=== PATIENT | female | born 1955 | race Caucasian/White ===

== ENCOUNTER → 2020-10-17 | Day surgery (SDC) | payer MEDICARE ==
[2020-10-15 11:10] LABS: BASOPHILS # (AUTO) 0.1 (0.0-0.1); BASOPHILS % 0.7 % (0.0-1.0); EOSINOPHILS # (AUTO) 0.3 (0.0-0.4); EOSINOPHILS % 3.4 % (0.0-6.0); HEMATOCRIT 42.1 % (34.2-44.1); HEMOGLOBIN 13.4 g/dL (12.0-16.0); LYMPHOCYTES # (AUTO) 3.7 (1.0-3.2); LYMPHOCYTES % 44.3 % (18.0-39.1); MEAN CORPUSCULAR HGB CONC 31.8 g/dL (31-35); MEAN CORPUSCULAR VOLUME 94.4 fL (81-99); MONOCYTES # (AUTO) 0.6 (0.2-0.8); MONOCYTES % 7.3 % (4.4-11.3); NEUTROPHILS # (AUTO) 3.7 (2.1-6.9); NEUTROPHILS % 44.1 % (38.7-80.0); PLATELET COUNT 313 x10e3/uL (140-360); RED BLOOD COUNT 4.46 x10e6/uL (3.6-5.1); RED CELL DISTRIBUTION WIDTH 13.6 % (11.7-14.4)
[~2020-10-17] MED LIST: ALLEGRA ALLERGY60 MG PO; ATORVASTATIN CA20 MG PO; ATROPINE SULFATE 1 MG/ML VIAL ONE; BUPIVACAINE 0.25% 30ML SDV ONE; CINNAMON PO; CINNAMON500 MG PO; COQ-10100 MG PO; DEXAMETHASONE SOD PHOS INJ 4 MG/ML VIAL ONE; FIBERMUCIL PO; FLONASE ALLERG9.9 ML INH; HAIR, SKIN AND1 EAC1 PO; IMMUNE FACTOR PO; KETOROLAC TROMETHAMINE 30 MG/ML VIAL ONE; LEXAPRO10 MG PO; LIDOCAINE 1% W/EPINEPHRINE 20 ML VIAL ONE; LIDOCAINE HCL 2% LOCAL INJ 5 ML SDV VIAL INJ ONE; LOSARTAN POTAS100 MG PO; OMEPRAZOLE40 MG PO; ONDANSETRON HCL INJ 2MG/ML 2ML 2 MG/ML VIAL ONE; POVIDONE IODINE 0.05% 0.05 % ML PO ONE; PROBIOTIC250 MG PO; PROPOFOL IV EMULSION 10 MG/ML 20 ML VIAL ONE; RESVERATROL100 MG PO; SEVOFLURANE INHAL SOLN 250 ML PEN BTL ONE; SODIUM CHLORIDE 0.9% 50ML 50 ML ONE; STRESS B-COMPL1 EACH PO; TIZANIDINE HCL2 M1 PO; VALACYCLOVIR500 MG PO; VITAMIN B-1100 M1 PO; VITAMIN D3250 MCG PO; VITAMIN K2100 MCG PO; WELLNESS FORMULA PO; [UNRECOGNIZED DRUG - OTHER] PO
[2020-10-17 09:10] VITALS: BP 120/68
== END | disposition home or self-care (01) ==
LOC: OR 05:16
PROVIDERS: ATTEND Orthopaedic Surgery
DX: S83.232A Complex tear of medial meniscus, current injury, left knee, initial encounter (principal); S83.282A Other tear of lateral meniscus, current injury, left knee, initial encounter; M22.42 Chondromalacia patellae, left knee; M67.52 Plica syndrome, left knee; M23.042 Cystic meniscus, anterior horn of lateral meniscus, left knee; K21.9 Gastro-esophageal reflux disease without esophagitis; I10 Essential (primary) hypertension; F41.9 Anxiety disorder, unspecified; X58.XXXA Exposure to other specified factors, initial encounter; Z01.810 Encounter for preprocedural cardiovascular examination; Z01.812 Encounter for preprocedural laboratory examination; Z01.818 Encounter for other preprocedural examination; Z20.822 Contact with and (suspected) exposure to COVID-19
CPT/HCPCS: 29882; 36415; 71046; 85025; 93005; J0461; J0690; J1100; J1885; J2001; J2405; J2704; U0002